=== PATIENT | female | born 1970 | race Caucasian/White ===

== ENCOUNTER 2020-04-10 06:09 | Day surgery (SDC) | payer BC ==
[~2020-04-10] VITALS: Ht 165.1 cm; Wt 95.7 kg
--- NOTE | ~2020-04-10 | O ---
[facility] [place] [address] OPERATIVE REPORT Name: CHRISTIAN HURTADO Room #: 150-1 [facility]..#: [id number] Admission: 04/10/20 Attend Phys: Олег Jang MD Discharge: Date of : 70 Report #: [id number] THIS REPORT FOR: cc: Galilea Casper Judith A. RNP Kneidel, Matthew T. MD ~ DATE OF SERVICE: 04/10/2020 PREOPERATIVE DIAGNOSIS: Right subtalar arthritis. POSTOPERATIVE DIAGNOSIS: Right subtalar arthritis. PROCEDURE: Right subtalar arthrodesis. SURGEON: Dr. Олег Jang. DIGITAL MUSIC INSTRUCTOR: ____. ANESTHESIA: General. ESTIMATED BLOOD LOSS: Minimal. DRAINS: No drains. TOURNIQUET TIME: One hour. DESCRIPTION OF PROCEDURE: The patient brought to the operating room where she was placed under general anesthesia. Once under adequate general anesthesia, her right lower extremity was prepped and draped in sterile manner. The extremity was elevated, exsanguinated, tourniquet placed 300 mmHg. A lateral incision over the sinus tarsi was made approximately 4 cm in length. This was dissected down through soft tissue to the extensor digitorum, which was then elevated off of the subtalar joint. Exposure of the joint was then complete. A rongeur was used to remove any soft tissue intervening and a lamina advertising statistical clerk was placed. Once in place, osteotomes, curettes and a bur were used to remove any remaining cartilage surface from the posterior and middle facets. Once removed and debrided, there was good bleeding subchondral bone. Therefore, the Signafuse allograft was placed. Utilizing fluoroscopy for guidance, two 7.3 mm cannulated screws were placed from the dorsal talus across the subtalar joint for fixation. Excellent fixation and alignment was achieved as verified under fluoroscopy. The wound was then irrigated copiously and closed with 2-0 Vicryl in the deep and subcutaneous tissues and paul were used for the skin. Wounds were dressed with Xeroform, 4 x 4s, and sterile soft compressive dressing was placed along with a short leg cast. Tourniquet was let down at 1 hour. Toes were pink and warm with good capillary refill. There were no complications from [address] [address] OPERATIVE REPORT [facility] Room #: 150-1 [facility] M.R.#: [id number] Admission: 04/10/20 Attend Phys: Олег Jang MD Discharge: Date of : 70 Report #: [id number] the procedure. The patient tolerated the procedure well and was taken to recovery room without incident. By: [id number] Олег Jang MD /nt
[~2020-04-10 06:09] MED LIST: PROGESTERONE200 MG PO
[2020-04-10 06:32] VITALS: BP 107/61
[2020-04-10] MEDS ORDERED: ASPIR-TRIN325 MG PO (08:27)
[2020-04-10] MEDS ORDERED: PERCOCET 7.5-31 EAC1 PO (08:27)
[2020-04-10 08:34] VITALS: BP 107/61
--- NOTE | 2020-04-10 10:58 | EKG ---
[facility] [place] [address] ELECTROCARDIOGRAM REPORT Name: CHRISTIAN HURTADO Room #: 150-1 [facility]..#: [id number] Admission: 04/10/20 Attend Phys: Олег Jang MD Discharge: Date of : 70 Report #: [id number] [facility] Test Date: 2020-04-10 Test Time: 10:44:07 Pat Name: CHRISTIAN HURTADO Department: Room: 150 1 Gender: F Television Schedule Coordinator: DANI : 1970 Requested By: Yoselyn Alatorre Order Number: [id number] MD: Alfonso Philip Measurements Intervals Aristes Rate: 70 P: 47 NV: 143 QRS: 0 QRSD: 95 T: -1 QT: 412 QTc: 445 Interpretive Statements Sinus rhythm Low voltage, precordial leads Possible left atrial enlargement Nonspecific ST-T wave change No previous ECG available for comparison Electronically Signed On 04-10-2020 10:58:13 PATENT PROSECUTION ATTORNEY by Alfonso Philip [email or web address] <ELECTRONICALLY SIGNED> By: Alfonso Philip MD 04/10/20 1058 1044 1044 Alfonso Philip MD /CHRIS
== END 2020-04-10 11:30 | disposition home or self-care (01) ==
LOC: OR 06:09 → TBA 06:10 → OR 11:30
PROVIDERS: ATTEND Orthopaedic Surgery Foot and Ankle Surgery
DX: M13.871 Other specified arthritis, right ankle and foot (principal); Z98.890 Other specified postprocedural states; Z79.899 Other long term (current) drug therapy; Z98.51 Tubal ligation status; Z90.49 Acquired absence of other specified parts of digestive tract; Z87.891 Personal history of nicotine dependence
CPT/HCPCS: 50010; 50101; 50386; 51412; 53341; 53400; 56524; 57091; 57180; 57213; 62110; 62900; 70005